=== PATIENT | male | born 1980 | race Caucasian/White ===

== ENCOUNTER 2023-07-06 04:34 | Emergency (ER) | payer OTHER, SELFPAY ==
[2023-07-06 04:42] VITALS: BP 126/78; PULSE 77; RESP 18; TEMP 36.6; O2SAT 98
--- NOTE | 2023-07-06 04:50 | CRLHL7_ITS ---
For Patients: As a result of the Cures Act, medical imaging exams and procedure reports are released immediately into your electronic medical record. You may view this report before your referring provider. If you have questions, please contact your health care provider. Indication: Fall, deltoid ligament pain. Technique: Left ankle 3 views. Comparison: None. Findings: Bones: Alignment is normal. No fractures or bone lesions. Joint spaces: Unremarkable. Soft tissues: Unremarkable. Impression: No evidence of fracture or traumatic malalignment. Dictated by Samuel Bynum MD @ 07/06/2023 5:44:55 AM (Electronically Signed)
--- NOTE | 2023-07-06 04:50 | CRLHL7_ITS ---
For Patients: As a result of the Cures Act, medical imaging exams and procedure reports are released immediately into your electronic medical record. You may view this report before your referring provider. If you have questions, please contact your health care provider. Indication: fall, medial joint line pain Technique: Left knee 3 views. Comparison: None. Findings: Bones: Alignment is normal. No fractures or bone lesions. Joint spaces: Joint spaces are well maintained. No degenerative changes. No sign of joint effusion. Soft tissues: Unremarkable. Impression: No evidence of fracture or traumatic malalignment. Dictated by Samuel Bynum MD @ 07/06/2023 5:39:27 AM (Electronically Signed)
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
[2023-07-06 05:16] VITALS: TEMP 36.6
[2023-07-06] MEDS: IBUPROFEN 400 MG TABLET 800 MG PO (05:16)
[2023-07-06 06:06] VITALS: BP 120/69; PULSE 74; RESP 18; TEMP 36.8; O2SAT 98
[2023-07-06 06:07] VITALS: BP 120/69; PULSE 74; RESP 18; TEMP 36.8
== END 2023-07-06 06:11 | disposition home or self-care (01) ==
PROVIDERS: Emergency Provider Family Medicine
DX: S93.492A Sprain of other ligament of left ankle, initial encounter (principal); W20.8XXA Other cause of strike by thrown, projected or falling object, initial encounter; Y99.0 Civilian activity done for income or pay
CPT/HCPCS: 73562; 73610; 99283; 99284; A9270